=== PATIENT | female | born 1960 | race African-American/Black ===

== ENCOUNTER 2018-02-26 16:01 | Emergency (ER) | payer OTHER ==
[~2018-02-26] VITALS: Ht 165.1 cm; Wt 98.9 kg
[2018-02-26 16:30] VITALS: BP 167/103
[2018-02-26] MEDS ORDERED: HYDROCODONE/APAP 5/325MG 1 EACH TABLET PO STA (16:50)
[2018-02-26] MEDS ORDERED: HYDROCODONE/APAP 5/325MG 1 EACH TABLET PO ONE (17:00)
[2018-02-26] MEDS ORDERED: HYDROCODONE/APAP 5/325MG 1 EACH TABLET ONE (17:07)
== END 2018-02-26 18:41 | disposition home or self-care (01) ==
LOC: ER 16:02
DX: R51 Headache (principal); F17.200 Nicotine dependence, unspecified, uncomplicated; Z60.2 Problems related to living alone; Z88.0 Allergy status to penicillin
CPT/HCPCS: 70450; 99284; A4606; Z7610

== ENCOUNTER 2019-03-23 14:44 | Emergency (ER) | payer OTHER ==
[~2019-03-23] VITALS: Ht 165.1 cm; Wt 99.8 kg
[2019-03-23] MEDS ORDERED: ACETAMINOPHEN ES 500 MG TABLET ONE (15:16)
--- NOTE | 2019-03-23 15:29 | NUR ---
Pt came in to the ED c/o of cough x7 days. Pt [id number], on room air breathing evenly, ambulatory with steady gait. Connected to the monitor. Will continue to monitor.
[2019-03-23] MEDS ORDERED: ACETAMINOPHEN ES 500 MG TABLET PO ONE (15:30)
[2019-03-23 16:14] VITALS: BP 127/85
== END 2019-03-23 16:18 | disposition home or self-care (01) ==
LOC: ER 14:44
DX: J40 Bronchitis, not specified as acute or chronic (principal); R53.83 Other fatigue; F17.200 Nicotine dependence, unspecified, uncomplicated; Z88.0 Allergy status to penicillin; Z60.2 Problems related to living alone
CPT/HCPCS: 71045-TC

== ENCOUNTER 2022-01-09 19:09 | Emergency (ER) | payer OTHER ==
[~2022-01-09] VITALS: Ht 162.6 cm; Wt 93.0 kg
[2022-01-09 20:05] VITALS: BP 149/89
== END 2022-01-09 21:03 | disposition home or self-care (01) ==
LOC: ER 19:13
DX: S90.562A Insect bite (nonvenomous), left ankle, initial encounter (principal); I87.2 Venous insufficiency (chronic) (peripheral); Z88.0 Allergy status to penicillin; Z60.2 Problems related to living alone; W57.XXXA Bitten or stung by nonvenomous insect and other nonvenomous arthropods, initial encounter; Y93.89 Activity, other specified; Y92.89 Other specified places as the place of occurrence of the external cause; Y99.8 Other external cause status

== ENCOUNTER 2022-01-16 13:00 | Emergency (ER) | payer OTHER ==
[~2022-01-16] VITALS: Ht 162.6 cm; Wt 93.0 kg
--- NOTE | 2022-01-16 14:16 | NUR ---
61 YRS FEMALE C/O LOWER EXTRAMITY BLISTER OBEN C/O PAIN DRINING WATER
--- NOTE | 2022-01-16 14:30 | NUR ---
IRREGATION ON RT LOWER EXTRAMITY DONE EMT PT ABLE TO MOVE RT LEG NO DIFFECTY
--- NOTE | 2022-01-16 15:05 | NUR ---
D/C INSTRACTION GIVEN TO PT FULLY AND VERBLIZED UNDERSTOOD D/C WITH DRESSING INTACT AND DRY PAIN 0/10
[2022-01-16 15:14] VITALS: BP 126/99
== END 2022-01-16 15:15 | disposition home or self-care (01) ==
LOC: ER 13:05
DX: S80.822A Blister (nonthermal), left lower leg, initial encounter (principal); F17.200 Nicotine dependence, unspecified, uncomplicated; Z88.0 Allergy status to penicillin; Z60.2 Problems related to living alone; X58.XXXA Exposure to other specified factors, initial encounter; Y93.89 Activity, other specified; Y92.89 Other specified places as the place of occurrence of the external cause; Y99.8 Other external cause status